=== PATIENT | male | born 1965 | race Caucasian/White ===

== ENCOUNTER 2018-01-05 16:54 | Inpatient (IN) ==
--- NOTE | 2018-01-05 17:16 | Emergency Department Note ---
Disposition Clinical Impression: Psychosis Qualifiers: Psychosis type: unspecified psychosis type Qualified Code(s): F29 - Unspecified psychosis not due to a substance or known physiological condition Disposition: Still a Patient Condition: Good Referrals: NONE,PCP [Non-Partnered Physician] - Forms: ED Satisfaction Letter Time of Disposition: 18:38 General Adult HPI - General Chief complaint: ED Psychiatric Symptoms Stated complaint: SI Time Seen by Provider: 01/05/18 17:08 Source: patient, other Mode of arrival: other Limitations: no limitations Nursing Notes Reviewed: Yes Vital Signs Reviewed: Yes - History of Present Illness HPI Narrative: Patient is a 52-year-old male who [facility] and asked pharmacy resident "if someone cuts himself, will they be admitted?", and the nurse in triage told him most likely they would. Upon further investigation, patient denies suicidal or homicidal ideations. Pt states that if he wanted to cut himself, he would be able to get a razor in his dorm room very easily. Pt states that he has several previous attempts - one at 18 years old where he was admitted to a psychiatric [facility], and twice fifteen years ago after he purposefully took medications in order to harm himself. When asked what he would do if we let him go home, he states that he would go visit his kids or his mother. When asked what he would do if we let him return to the [facility], he states that he would not harm himself. [facility] psychologist, Dr. Moody, in the room states that he recently had his medication adjusted and is now taking trifluoroperazine, although they only have 6 days of this medication left, and that this medication is on backorder until March 2018. Fransisco further states that he will need to have his medication adjusted again, and that the safest place for him to do that would be as inpatient here. Further, when asked if the patient has visual or auditory hallucinations, he states that if he were to have the television on, he would be able to see the words they are saying in his mind. Pt additionally offers that he has been on Wellbutrin in group home and this helped him a lot, and that he has received mental health services at [facility] in [place], [place] on [facility]. Patient denies homicidal ideations. Pain Scale: 0 - Related Data Previous Rx's Medication Instructions Recorded Ibuprofen [Ibu] 600 mg PO Q6H PRN #30 tablet 11/11/17 Ibuprofen 400 mg PO TID PRN #20 tablet 12/03/17 Loratadine/Pseudophed (12 HR) 1 each PO BID PRN 7 Days 12/03/17 [Claritin D (12HR)] tab.er.12h Penicillin VK 500 mg PO ONCE #28 tablet 12/12/17 Amoxicillin/Clavulanate [Augmentin] 875 mg PO BID #14 tablet 12/21/17 Ibuprofen [Motrin] 800 mg PO Q8HR #30 tablet 12/21/17 Naproxen [Naprosyn] 500 mg PO BID #20 tablet 12/31/17 Ondansetron ODT [Zofran ODT] 4 mg SL Q6HR #8 tab.rapdis 12/31/17 Allergies Allergy/AdvReac Type Severity Reaction Status Date / Time No Known Allergies Allergy Verified 01/05/18 17:07 All systems ED: reviewed and negative except as stated. Review of Systems: As Per HPI Constitutional: Reports: other (Feels like his whole body is hot) Eyes: Denies: eye pain, eye discharge, vision change ENT ED: Denies: ear pain, throat pain, dental pain, hearing loss, epistaxis, congestion, dysphagia Cardiovascular: Denies: chest pain, palpitations, dyspnea on exertion, edema, syncope Respiratory: Reports: dyspnea Gastrointestinal: Denies: abdominal pain, nausea, vomiting, diarrhea, constipation, hematemesis, melena, hematochezia Genitourinary: Reports: dysuria Musculoskeletal: Denies: back pain, neck pain, arthralgia, myalgia Neurological: Denies: headache, weakness, numbness, paresthesias, confusion, abnormal gait, vertigo Psychiatric: Denies: homicidal thoughts Past Medical History - Past Medical History Medical history: Reports: hyperlipidemia, hypertension Psychiatric history: Reports: anxiety, depression, prior suicide attempt, schizophrenia, previous psychiatric hospitalization, other - Social History Smoking Status: Current every day smoker Smokeless Tobacco Status: No Alcohol use: Reports: none Drug use: Reports: none, other Physical Exam - General Limitations: no limitations General appearance: alert, in no apparent distress - Head Head exam: atraumatic, normocephalic - ENT ENT exam: normal exam, normal oropharynx, mucous membranes moist - Chest Chest inspection: Present: normal inspection, symmetric chest wall rise - Respiratory Respiratory exam: Present: normal lung sounds bilaterally. Absent: respiratory distress, wheezes - Cardiovascular Cardiovascular exam: Present: regular rate, normal rhythm - Expanded Upper Extremity Exam Forearm/Wrist exam: Present: other (several 1-2mm deep cuts present on left forearm, not actively bleeding, appear at least a day or so old) - Psychiatric Psychiatric exam: Present: flat affect - Skin Skin exam: Present: warm, dry Course Course Narrative: Patient was just seen at this facility on Monday, and was given a full medical clearance along with evaluation by [facility]. On Monday [facility] declined to admit the patient. However when patient returned to the [facility], he stated that he would not harm himself, and then found a razor and cut his left forearm in a horizontal linear pattern several times. Patient returns to this facility today for concerns that he will not be able to continue on his anti-psychotic and will need to be put on a different medication. Medical clearance does not appear necessary at this time as he is denying suicidal or homicidal ideations, and is simply here to have his medication adjusted. [facility] will be consulted. - Reevaluation(s) Reevaluation #1: [facility] has still not arrived to consult with the patient, but [facility] Psychologist Fransisco was put on the phone with them to communicate her information. Time: 18:33 Vital Signs Temperature 97.9 F 01/05/18 17:03 Pulse Rate 72 01/05/18 17:03 Respiratory Rate 16 01/05/18 17:03 Blood Pressure 146/89 01/05/18 17:03 O2 Sat by Pulse Oximetry 97 01/05/18 17:03 Temperature 97.9 F 01/05/18 17:03 Pulse Rate 72 01/05/18 17:03 Respiratory Rate 16 01/05/18 17:03 Blood Pressure 146/89 01/05/18 17:03 O2 Sat by Pulse Oximetry 97 01/05/18 17:03 Oxygen Delivery Oxygen Delivery Room Air Medical Decision Making - MDM Narrative Medical decision making narrative: Patient is still awaiting evaluation by one day. Patient will be signed out to [facility] doc Dr. Garcia. Please see his note for detailed disposition.
--- NOTE | 2018-01-05 17:35 | Emergency Department Note ---
Disposition Clinical Impression: Psychosis Disposition: Still a Patient Condition: Good Referrals: NONE,PCP [Primary Care Provider] - Forms: ED Satisfaction Letter General Adult HPI - General Chief complaint: ED Psychiatric Symptoms Stated complaint: SI Time Seen by Provider: 01/05/18 17:08 Source: patient, other Mode of arrival: other Limitations: no limitations - History of Present Illness Pain Scale: 0 - Related Data Previous Rx's Medication Instructions Recorded Ibuprofen [Ibu] 600 mg PO Q6H PRN #30 tablet 11/11/17 Ibuprofen 400 mg PO TID PRN #20 tablet 12/03/17 Loratadine/Pseudophed (12 HR) 1 each PO BID PRN 7 Days 12/03/17 [Claritin D (12HR)] tab.er.12h Penicillin VK 500 mg PO ONCE #28 tablet 12/12/17 Amoxicillin/Clavulanate [Augmentin] 875 mg PO BID #14 tablet 12/21/17 Ibuprofen [Motrin] 800 mg PO Q8HR #30 tablet 12/21/17 Naproxen [Naprosyn] 500 mg PO BID #20 tablet 12/31/17 Ondansetron ODT [Zofran ODT] 4 mg SL Q6HR #8 tab.rapdis 12/31/17 Allergies Allergy/AdvReac Type Severity Reaction Status Date / Time No Known Allergies Allergy Verified 01/05/18 17:07 Past Medical History - Past Medical History Medical history: Reports: hyperlipidemia, hypertension Psychiatric history: Reports: anxiety, depression, prior suicide attempt, schizophrenia, previous psychiatric hospitalization, other - Social History Smoking Status: Current every day smoker Smokeless Tobacco Status: No Alcohol use: Reports: none Drug use: Reports: none, other Physical Exam - General Limitations: no limitations General appearance: alert, in no apparent distress Course Vital Signs Temperature 97.9 F 01/05/18 17:03 Pulse Rate 72 01/05/18 17:03 Respiratory Rate 16 01/05/18 17:03 Blood Pressure 146/89 01/05/18 17:03 O2 Sat by Pulse Oximetry 97 01/05/18 17:03 Temperature 97.9 F 01/05/18 17:03 Pulse Rate 72 01/05/18 17:03 Respiratory Rate 16 01/05/18 17:03 Blood Pressure 146/89 01/05/18 17:03 O2 Sat by Pulse Oximetry 97 01/05/18 17:03 Oxygen Delivery Oxygen Delivery Room Air Attestation Statement - Attestation Attestation: I examined this patient and my medical decision-making was reviewed with the Resident Physician. I agree with the documented findings, disposition and treatment plan as described except to the extent set forth below. [id number] time provided The [facility] due to the needs to have his antipsychotic medications adjusted. He was seen for behavioral symptoms 2 days ago and was prescribed trifluoperazine which is on backorder. The patient is experiencing chronic hallucinations but no active homicidal or suicidal ideation 18:15: Care of patient to be endorsed to Dr. Garcia at 7 PM pending behavioral consultation
--- NOTE | 2018-01-05 21:53 | Emergency Department Note ---
Disposition Clinical Impression: Psychosis Qualifiers: Psychosis type: unspecified psychosis type Qualified Code(s): F29 - Unspecified psychosis not due to a substance or known physiological condition Disposition: Admitted As Inpatient Condition: Good Referrals: NONE,PCP [Primary Care Provider] - Forms: ED Satisfaction Letter Time of Disposition: 21:53 General Adult HPI - General Chief complaint: ED Psychiatric Symptoms Stated complaint: SI Time Seen by Provider: 01/05/18 17:08 Source: patient, other Mode of arrival: other Limitations: no limitations - History of Present Illness Pain Scale: 0 - Related Data Previous Rx's Medication Instructions Recorded Ibuprofen [Ibu] 600 mg PO Q6H PRN #30 tablet 11/11/17 Ibuprofen 400 mg PO TID PRN #20 tablet 12/03/17 Loratadine/Pseudophed (12 HR) 1 each PO BID PRN 7 Days 12/03/17 [Claritin D (12HR)] tab.er.12h Penicillin VK 500 mg PO ONCE #28 tablet 12/12/17 Amoxicillin/Clavulanate [Augmentin] 875 mg PO BID #14 tablet 12/21/17 Ibuprofen [Motrin] 800 mg PO Q8HR #30 tablet 12/21/17 Naproxen [Naprosyn] 500 mg PO BID #20 tablet 12/31/17 Ondansetron ODT [Zofran ODT] 4 mg SL Q6HR #8 tab.rapdis 12/31/17 Allergies Allergy/AdvReac Type Severity Reaction Status Date / Time No Known Allergies Allergy Verified 01/05/18 17:07 Constitutional: Reports: other (Feels like his whole body is hot) Eyes: Denies: eye pain, eye discharge, vision change ENT ED: Denies: ear pain, throat pain, dental pain, hearing loss, epistaxis, congestion, dysphagia Cardiovascular: Denies: chest pain, palpitations, dyspnea on exertion, edema, syncope Respiratory: Reports: dyspnea Gastrointestinal: Denies: abdominal pain, nausea, vomiting, diarrhea, constipation, hematemesis, melena, hematochezia Genitourinary: Reports: dysuria Musculoskeletal: Denies: back pain, neck pain, arthralgia, myalgia Neurological: Denies: headache, weakness, numbness, paresthesias, confusion, abnormal gait, vertigo Psychiatric: Denies: homicidal thoughts Past Medical History - Past Medical History Medical history: Reports: hyperlipidemia, hypertension Psychiatric history: Reports: anxiety, depression, prior suicide attempt, schizophrenia, previous psychiatric hospitalization, other - Social History Smoking Status: Current every day smoker Smokeless Tobacco Status: No Alcohol use: Reports: none Drug use: Reports: none, other Physical Exam - General Limitations: no limitations General appearance: alert, in no apparent distress Course Course Narrative: This patient was signed out at shift change from Dr. Johnston and Dr. Oleary. Please refer to their notes for complete details of the history and physical examination. At shift change patient is awaiting [address] psychiatric consultation for possible admission for medication adjustments. Patient was seen and evaluated in the emergency department by the [address] psychiatry department and is being admitted to the [address] psychiatric unit. Emergency admission form completed and signed by me. Vital Signs Temperature 97.9 F 01/05/18 17:03 Pulse Rate 72 01/05/18 17:03 Respiratory Rate 16 01/05/18 17:03 Blood Pressure 146/89 01/05/18 17:03 O2 Sat by Pulse Oximetry 97 01/05/18 17:03 Temperature 97.9 F 01/05/18 17:03 Pulse Rate 72 01/05/18 17:03 Respiratory Rate 16 01/05/18 17:03 Blood Pressure 146/89 01/05/18 17:03 O2 Sat by Pulse Oximetry 97 01/05/18 17:03 Oxygen Delivery Oxygen Delivery Room Air
[2018-01-05] MEDS ORDERED: MOM Conc 10 ML UD.LIQ PO PRN (23:35)
[2018-01-05] MEDS ORDERED: Mag Hydrox/Al Hydrox/Simeth 30 ML UDC PO PRN (23:35)
[2018-01-05] MEDS ORDERED: *HR* LORazepam 1 MG TABLET PO PRN (23:35)
[2018-01-05] MEDS ORDERED: Haloperidol Lactate 5 MG/ML VIAL IM PRN (23:35)
[2018-01-05] MEDS ORDERED: Ibuprofen 400 MG TABLET PO PRN (23:35)
[2018-01-05] MEDS ORDERED: *HR* LORazepam 2 MG/ML VIAL IM PRN (23:35)
[2018-01-05] MEDS ORDERED: hydrOXYzine pamoate 25 MG CAPSULE PO PRN (23:35)
[2018-01-05] MEDS ORDERED: traZODone 50 MG TABLET PO PRN (23:35)
--- NOTE | 2018-01-06 09:42 | Psychiatry History & Physical ---
Date of Encounter: 01/06/18 Time of Encounter: 09:37 History of Present Illness Patient Stated Chief Complaint: Suicidal ideation Medicare Admission Attestation: For traditional Medicare patients the provided hospital inpatient services are reasonable and necessary and in the case of services not specified as inpatient -only under 42 CFR 419.22 (n), that they are appropriately provided as inpatient services in accordance 42 CFR 412.3. For Critical Access Hospital the patient may reasonably be expected to be discharged or transferred to a hospital within 96 hours after admission to the Critical Access Hospital. Admitted From: Emergency Dept History of Present Illness: Mr. Ramos is a 52 year old male admitted for suicidal ideation. He was referred from [facility]. Later on patient stated that he was kidding. Patient also attempted to cut his forearm with a razor. Information and records are very minimal, patient apparently has a history of schizoaffective disorder and treatment in [facility]. He is currently on perphenazine. He reports poor sleep with initial and mid insomnia. He denies suicidal ideation. He is trying to get Social Security disability. In the past he worked different jobs. He is passive and poorly motivated. Past Med Surg Social Fam HX - Past Medical History Medical history: hyperlipidemia, hypertension - Past Psychiatric History Psychiatric history: Reports: bipolar, prior suicide attempt, schizophrenia. Denies: previous psychiatric hospitalization - Social History Smoking Status: Current every day smoker Smokeless Tobacco Status: No Alcohol use: none Drug use: none, other Medications & Allergies Naproxen [Naprosyn] 500 mg PO BID #20 tablet 12/31/17 [Rx] Ondansetron ODT [Zofran ODT] 4 mg SL Q6HR #8 tab.rapdis 12/31/17 [Rx] 3 Allergy/AdvReac Type Severity Reaction Status Date / Time No Known Allergies Allergy Verified 01/05/18 17:07 Review of Systems Psychiatric: Reports: abnormal sleep pattern, suicidal ideation Exam - HEENT Head exam IM: Present: atraumatic Eye exam IM: Present: EOMI, normal appearance, PERRL ENT exam IM: Present: normal exam - Neurological Neurological exam: Present: CN II-XII intact - Respiratory Respiratory exam IM: Present: CTAB - GI/Abdominal GI/Abdominal exam IM: Present: normal bowel sounds, soft. Absent: tenderness - Extremities Extremities exam IM: Present: full ROM - Skin Skin exam IM: Present: dry, warm - Constitutional Vitals: Temp Pulse Resp BP Pulse Ox 96.2 F L 72 18 146/106 96 01/05/18 22:30 01/05/18 22:30 01/05/18 22:30 01/05/18 22:30 01/05/18 22:30 General appearance: age & developmentally appropriate, well-nourished, unkempt, disheveled, average - Musculoskeletal Gait: normal Station: relaxed Strength & Tone: normal for patient - Psychiatric Patient Orientation: Yes Person, Yes Time, Yes Place Level of alertness: Alert, Sedated Behavior: calm, cooperative, guarded, withdrawn Psychomotor activity: Slowed Eye Contact: Minimal Contact Mood Description: Euthymic/stable, Depressed Affect description: congruent with mood, constricted, blunted Speech Volume: Normal, No variation in volume Speech pattern: disorganized, limited, mumbled Language & Vocabulary: consistent with education Thought Process: Linear, Goal Oriented, Thought Blocking, Slowed Thinking Thought Content: Yes Suicidal ideation, No Homicidal ideation, No Overt delusions Perceptual Disturbances: No Auditory hallucinations, No Visual hallucinations Attention Span Ability: Capable of Focused Attention Memory Description: Grossly Intact Patient Reliability: Reliable Historian Fund of knowledge: Yes abstraction ability, Yes average, Yes aware of current events Intelligence Estimate: Average Judgment: Limited Insight: Partial Assessment and Plan (1) Suicidal ideation Current visit: No Status: Acute Plan: Admit inpatient for safety and stabilization, Close observation, Suicide Precautions per unit protocol, Encourage participation in unit milieu, Group Therapy, Monitor sleep, Monitor appetite Additional Plan: 1. Please request psychiatric records from previous treatment 2. Increase trazodone to 100 mg at bedtime Risks, benefits, side effects, alternatives discussed w/pt: Yes Patient agreeable to treatment: Yes Estimated Length of Stay (Days): 3
[2018-01-06] MEDS: Perphenazine 2 MG TABLET PO SCH ×2 (10:59→20:05)
[2018-01-06] MEDS ORDERED: traZODone 50 MG TABLET PO PRN (12:37)
[2018-01-07] MEDS: Perphenazine 2 MG TABLET PO SCH ×2 (10:20→20:29)
--- NOTE | 2018-01-07 13:37 | Psychiatry Progress Note ---
Date of Encounter: 01/07/18 Time of Encounter: 13:34 Subjective Interval history: Patient seen for follow-up. Case discussed was nursing staff. Staff report patient is medication compliant spending most his time sleeping but he is cooperative and interacts appropriately was other patients and staff. Denied any suicidal ideation. She reports improved sleep was increasing trazodone dose. He is looking forward to go back to [facility]. Review of Systems Psychiatric: Reports: abnormal sleep pattern, suicidal ideation Results - Vital Signs Vital Signs: Temp Pulse Resp BP Pulse Ox 98.5 F 66 16 110/75 98 01/07/18 08:41 01/07/18 08:41 01/07/18 08:41 01/07/18 08:41 01/07/18 08:41 Assessment and Plan (1) Suicidal ideation Current visit: No Status: Acute Plan: Continue hospitalization, Close observation, Suicide Precautions per unit protocol, Encourage participation in unit milieu, Group Therapy, Monitor sleep, Monitor appetite Risks, benefits, side effects, alternatives discussed w/pt: Yes Patient agreeable to treatment: Yes Consult Discharge Plan - Plan Referrals: NONE,PCP [Primary Care Provider] - Psychiatry Exam - Constitutional Vitals: Temp Pulse Resp BP Pulse Ox 98.5 F 66 16 110/75 98 01/07/18 08:41 01/07/18 08:41 01/07/18 08:41 01/07/18 08:41 01/07/18 08:41 General appearance: age & developmentally appropriate, well-groomed, well- nourished, average - Musculoskeletal Gait: normal Station: relaxed Strength & Tone: normal for patient - Psychiatric Patient Orientation: Yes Person, Yes Time, Yes Place Level of alertness: Alert Behavior: calm, cooperative Psychomotor activity: Normal Eye Contact: Maintains Eye Contact Mood Description: Euthymic/stable, Euphoric Affect description: congruent with mood, full range, euphoric Speech Volume: Normal Speech pattern: normal rate, normal rhythm, normal tone, fluent, spontaneous Language & Vocabulary: consistent with education Thought Process: Linear, Goal Oriented Thought Content: No Suicidal ideation, No Homicidal ideation, No Overt delusions Perceptual Disturbances: No Auditory hallucinations, No Visual hallucinations Attention Span Ability: Capable of Focused Attention Memory Description: Grossly Intact Patient Reliability: Questionable Historian Fund of knowledge: Yes abstraction ability, Yes aware of current events Intelligence Estimate: Average Judgment: Limited Insight: Partial
[2018-01-08] MEDS: Perphenazine 2 MG TABLET PO SCH (08:36)
[2018-01-08 09:41] VITALS: BP 116/79
--- NOTE | 2018-01-08 11:58 | Discharge Summary ---
Date of Encounter: 01/08/18 Time of Encounter: 11:54 Diagnosis - Discharge Diagnosis (1) Suicidal ideation Status: Acute Medications - Discharge Medications Prescriptions: Perphenazine [Trilafon] 2 mg PO BID #60 tablet traZODone [TraZODone] 100 mg PO HS PRN #30 tablet PRN Reason: Insomnia Naproxen [Naprosyn] 500 mg PO BID #20 tablet 12/31/17 [Rx] Ondansetron ODT [Zofran ODT] 4 mg SL Q6HR #8 tab.rapdis 12/31/17 [Rx] Perphenazine [Trilafon] 2 mg PO BID #60 tablet 01/08/18 [Rx] traZODone [TraZODone] 100 mg PO HS PRN #30 tablet 01/08/18 [Rx] 3 Allergy/AdvReac Type Severity Reaction Status Date / Time No Known Allergies Allergy Verified 01/05/18 17:07 Provider Date of admission: 01/05/18 22:15 Primary care physician: PCP NONE Discharging clinician: Rodney Tran Psychiatry Exam - Constitutional Vitals: Temp Pulse Resp BP Pulse Ox 97.5 F L 71 16 116/79 97 01/08/18 09:00 01/08/18 09:00 01/08/18 09:00 01/08/18 09:00 01/08/18 09:00 General appearance: age & developmentally appropriate, well-groomed, well- nourished, average - Musculoskeletal Gait: normal Station: relaxed Strength & Tone: normal for patient - Psychiatric Patient Orientation: Yes Person, Yes Time, Yes Place Level of alertness: Alert Behavior: calm, cooperative Psychomotor activity: Normal Eye Contact: Maintains Eye Contact Mood Description: Euthymic/stable Affect description: congruent with mood, full range Speech Volume: Normal Speech pattern: normal rate, normal rhythm, normal tone, fluent, spontaneous Language & Vocabulary: consistent with education Thought Process: Linear, Goal Oriented Thought Content: No Suicidal ideation, No Homicidal ideation, No Overt delusions Perceptual Disturbances: No Auditory hallucinations, No Visual hallucinations Attention Span Ability: Capable of Focused Attention Memory Description: Grossly Intact Patient Reliability: Reliable Historian Fund of knowledge: Yes abstraction ability, Yes aware of current events Intelligence Estimate: Average Judgment: Limited Insight: Partial Hospital Course Hospital course: Mr. Ramos is a 52 year old male admitted for suicidal ideation from [facility]. For details admission please see H&P On the units patient was given perphenazine and trazodone for sleep. Trazodone dose was increased and patient reported improved sleep. He participated in some activities, he was medication compliant. He denies suicidal ideation and was anxious to go back to continue his rehabilitation. On discharge he was medically stable, denies suicidal ideation and denied any side effects of medication. He is discharged in stable condition. - Time Spent with Patient Total time spent providing and/or coordinating discharge services: Less than 30 minutes Assessment and Plan - Patient/Caregiver Discharge Instructions Activity: resume usual activities as tolerated Diet: regular diet - Follow up Plan Follow up with: NONE,PCP [Primary Care Provider] - Functional capacity at discharge: independent ambulation Overall status at discharge: Stable Disposition: Home, Self-Care Quality - Multiple Antipsychotics Patient discharged on 2 or more antipsychotic medications: No Procedures - Procedures Procedures: Medication Management, Crisis Stabilization, Supportive Therapy, Group Therapy, Psychoeducational Therapy
== END 2018-01-08 13:30 | disposition home or self-care (01) | DRG 384 ==
LOC: EMEROOARM 16:54 → 1ANU 22:15 → SUATTDRO 22:15 → 1ANU 22:30
PROVIDERS: ADMIT Psychiatry & Neurology Forensic Psychiatry; ATTEND Psychiatry & Neurology Psychiatry